=== PATIENT | female | born 1970 | race African-American/Black ===

== ENCOUNTER 2018-04-04 14:47 | Outpatient (CLI) | payer OTHER | END 2018-04-04 14:48 | disposition home or self-care (01) | LOC: LABHHL 14:47 | PROVIDERS: ATTEND Surgery | DX: D24.1 Benign neoplasm of right breast (principal); N60.11 Diffuse cystic mastopathy of right breast; N62 Hypertrophy of breast | CPT/HCPCS: 88305 ==

== ENCOUNTER 2021-01-13 09:35 | Outpatient (CLI) | payer OTHER ==
--- NOTE | 2021-01-13 11:28 | Mammography Report ---
DIGITAL SCREENING MAMMOGRAM WITH CAD, 01/13/2021 CLINICAL INFORMATION / INDICATION: Routine screening mammography. TECHNIQUE: Digital bilateral 2D mammography was obtained in the craniocaudal and mediolateral obliqu e projections. This examination was interpreted with the benefit of Computer-Aided Detection analysis . COMPARISON: Prior mammogram 04/03/2019 FINDINGS: Breast Density: The breasts are heterogeneously dense, which may obscure small masses. No dominant mass, suspicious calcifications, or architectural distortion in either breast. There is a stable biopsy clip in the right breast. There has been no significant change compared with the prior examination. IMPRESSION: No mammographic evidence of malignancy. Follow up recommendation: Routine yearly BI-RADS Category 2: Benign. A "normal" or negative report should not discourage follow up or biopsy of a clinically significant f inding. A written summary of these findings will be mailed to the patient. The patient will be entered into a mammography reporting system which will generate a reminder letter for the patient's next appointmen t at the appropriate interval. The [employer] recommends yearly mammograms starting at age 40 and continuing as l arleth as a woman is in good health. Breast MRI is recommended for women with an approximate 20-25% or greater lifetime risk of breast cancer, including women with a strong family history of breast or ova meek cancer or who have been treated for Hodgkin's disease. Signer Name: Soco Scott MD Signed: 01/13/2021 11:24 AM Workstation Name: [employer]
== END 2021-01-13 09:36 | disposition home or self-care (01) ==
LOC: SPVWC 09:35
PROVIDERS: ATTEND Surgery
DX: Z12.31 Encounter for screening mammogram for malignant neoplasm of breast (principal); N64.89 Other specified disorders of breast
CPT/HCPCS: 77067